=== PATIENT | female | born 1965 | race Caucasian/White ===

== ENCOUNTER → 2017-11-24 | Outpatient (CLI) | payer BC ==
[~2017-11-24] MED LIST: ASPEC81 PO; BUPR-102 PO; LRS10 PO; MULT-506 PO; NAPR-1231 PO; POLY335040 PO; PYRI100T4 PO
[2017-11-24 13:16] LABS: ALKALINE PHOSPHATASE 75 U/L (45-117); ALT/SGPT 25 U/L (12-78); AST/SGOT 15 U/L (15-37); TOTAL PROTEIN 7.1 gm/dl (6.4-8.2)
== END | disposition home or self-care (01) ==
LOC: C.LAB 09:58
PROVIDERS: ATTEND Family Medicine
DX: E66.8 Other obesity (principal)